=== PATIENT | male | born 1960 | race Two or more races ===

== ENCOUNTER 2018-11-17 18:52 | Emergency (ER) | payer OTHER, MEDICAID ==
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
[2018-11-17] MEDS ORDERED: OXYCODONE/APAP 5/325 TAB PO ONE (19:31)
[2018-11-17] MEDS ORDERED: CYCLOBENZAPRINE 10 MG TAB PO ONE (19:31)
[2018-11-17 21:23] VITALS: BP 158/85
== END 2018-11-17 21:27 | disposition home or self-care (01) ==
DX: S06.0X0A Concussion without loss of consciousness, initial encounter (principal); S16.1XXA Strain of muscle, fascia and tendon at neck level, initial encounter; S39.012A Strain of muscle, fascia and tendon of lower back, initial encounter; I10 Essential (primary) hypertension; E11.9 Type 2 diabetes mellitus without complications; V49.49XA Driver injured in collision with other motor vehicles in traffic accident, initial encounter; Y92.410 Unspecified street and highway as the place of occurrence of the external cause; Z79.4 Long term (current) use of insulin